=== PATIENT | male | born 1960 | race Caucasian/White ===

== ENCOUNTER 2024-04-02 23:54 | Emergency (ER) | payer MEDICARE ==
[~2024-04-02] VITALS: Ht 190.5 cm; Wt 90.7 kg
[2024-04-02 23:55] VITALS: PULSE 73; RESP 17; TEMP 97.7
[2024-04-03] MEDS ORDERED: CLEOCIN HCL150 MG PO (00:12)
[2024-04-03 00:35] VITALS: BP 181/96; PULSE 73; RESP 17; TEMP 97.7; O2SAT 98
[2024-04-03] MEDS: IBUPROFEN 400 MG TAB PO ONE (00:35)
== END 2024-04-03 00:38 | disposition home or self-care (01) ==
LOC: FSED 04-03 00:11
DX: K04.7 Periapical abscess without sinus (principal); K02.9 Dental caries, unspecified
CPT/HCPCS: 99283

== ENCOUNTER 2024-04-10 17:15 | Emergency (ER) | payer MEDICARE ==
[~2024-04-10] VITALS: Ht 190.5 cm; Wt 98.1 kg
[~2024-04-10 17:15] MED LIST: CLEOCIN HCL150 MG PO
[2024-04-10 17:19] VITALS: PULSE 70; RESP 18; TEMP 97.9; O2SAT 98
[2024-04-10] MEDS ORDERED: CLEOCIN HCL300 MG PO (17:29)
== END 2024-04-10 17:35 | disposition home or self-care (01) ==
LOC: FSED 17:19
DX: K04.7 Periapical abscess without sinus (principal)
CPT/HCPCS: 99283

== ENCOUNTER → 2025-01-02 | Outpatient (REF) | payer MEDICARE ==
[~2025-01-02] MED LIST changes: +CLEOCIN HCL300 MG PO; +LIDOCAINE HCL 1% 30ML-PF VIAL ONE
== END ==
LOC: US 07:53
PROVIDERS: ATTEND Otolaryngology
DX: K11.8 Other diseases of salivary glands (principal)
CPT/HCPCS: 10005; 88172; 88173; 88305; J2003